=== PATIENT | female | born 1975 | race Caucasian/White ===

== ENCOUNTER 2024-11-02 14:58 | Emergency (ER) | payer BC ==
[~2024-11-02] VITALS: Ht 165.1 cm; Wt 96.8 kg
[2024-11-02 17:43] VITALS: BP 153/69; TEMP 98; O2SAT 97
[2024-11-02] MEDS ORDERED: DOXY-440 PO (17:46)
[2024-11-02] MEDS ORDERED: CIPR7.5D2 AD (17:46)
[2024-11-02] MEDS ORDERED: ALLE60TA69 PO (17:48)
[2024-11-02] MEDS ORDERED: GABA-284 PO (17:48)
[2024-11-02] MEDS ORDERED: CYMB1CAP5 PO (17:48)
[2024-11-02] MEDS ORDERED: METF500T13 PO (17:48)
[2024-11-02] MEDS ORDERED: PLEC3TAB PO (17:48)
== END 2024-11-02 17:55 | disposition home or self-care (01) ==
LOC: M ED 14:58
DX: H60.91 Unspecified otitis externa, right ear (principal); J20.9 Acute bronchitis, unspecified; J45.909 Unspecified asthma, uncomplicated; Z79.84 Long term (current) use of oral hypoglycemic drugs; Z79.899 Other long term (current) drug therapy; Z88.0 Allergy status to penicillin; Z88.8 Allergy status to other drugs, medicaments and biological substances; Z91.040 Latex allergy status

== ENCOUNTER 2025-03-25 19:11 | Emergency (ER) | payer BC ==
[~2025-03-25] VITALS: Ht 165.1 cm; Wt 95.6 kg
[~2025-03-25 19:11] MED LIST: ALLE60TA69 PO; CIPR7.5D2 AD; CYMB1CAP5 PO; DOXY-440 PO; GABA-284 PO; METF500T13 PO; PLEC3TAB PO
[2025-03-25 20:01] LABS: BASO # 0.1 10^3/uL (0.0-0.2); BASO % 0.5 % (0.0-1.0); EOS # 0.1 10^3/uL (0.0-0.5); EOS % 0.5 % (0.0-3.0); LYMPH # 2.0 10^3/uL (1.5-5.0); LYMPH % 15.3 % (24.0-44.0); MONO # 0.9 10^3/uL (0.0-0.8); MONO % 6.6 % (2.0-8.0); NEUTROPHILS # 10.2 10^3/uL (1.5-8.5); NEUTROPHILS % 76.9 % (36.0-66.0); PLATELET COUNT, AUTOMATED 447 10^3/uL (150-450)
[2025-03-25 20:22] LABS: ALT/SGPT 39.0 U/L (7.0-40); AST/SGOT 27.0 U/L (<34); CALCIUM LEVEL 9.3 MG/DL (8.5-10.1); CARBON DIOXIDE LEVEL 26.0 MMOL/L (20-31); CHLORIDE LEVEL 106.0 MMOL/L (98-107); CREATININE FOR GFR 0.82 MG/DL (0.55-1.30); GLOMERULAR FILTRATION RATE 86.6 (>51); POTASSIUM SERUM 4.3 MMOL/L (3.5-5.1); SODIUM LEVEL 143.0 MMOL/L (136-145)
[2025-03-25] MEDS ORDERED: ISOVUE-370 76% 100 ML VIAL As Ordered ONE (22:37)
[2025-03-25] MEDS: ONDANSETRON 4MG/2ML VIAL IV ONE (22:59)
[2025-03-25] MEDS: ACETAMINOPHEN *IV* 1,000 MG in IV 1 EA IV ONE (22:59)
[2025-03-26 01:30] VITALS: BP 110/63; TEMP 97.2; O2SAT 96
[2025-03-26] MEDS ORDERED: CIPR-249 PO (01:32)
[2025-03-26] MEDS ORDERED: METR-265 PO (01:32)
[2025-03-26] MEDS: CIPROFLOXACIN 500 MG TABLET PO ONE (01:48)
== END 2025-03-26 01:56 | disposition home or self-care (01) ==
LOC: M ED 19:11
DX: K57.32 Diverticulitis of large intestine without perforation or abscess without bleeding (principal); K58.9 Irritable bowel syndrome, unspecified; K31.84 Gastroparesis; K76.0 Fatty (change of) liver, not elsewhere classified; Z88.0 Allergy status to penicillin; Z88.8 Allergy status to other drugs, medicaments and biological substances; Z91.040 Latex allergy status
CPT/HCPCS: 74177; 80053; 82248; 83605; 83690; 85025; 96365; 96374; 99284; J0131; J2405; Q9967